=== PATIENT | female | born 1970 | race Caucasian/White ===

== ENCOUNTER → 2020-12-24 | Outpatient (CLI) | payer BC ==
--- NOTE | 2020-12-25 07:29 | US ---
EXAMINATION TYPE: US pelvis complete transvag DATE OF EXAM: 12/24/2020 COMPARISON: NONE CLINICAL HISTORY: N83.9 NONINFLAMMATORY DISORDER OF OVARY. Patient states having uterus and right ova ry removed. TECHNIQUE: Transvaginal (TV) and Transabdominal (TA) . Date of LMP: Partial hysterectomy EXAM MEASUREMENTS: Left Ovary: 2.5 x 1.9 x 1.5 cm 1. Uterus: Surgically absent 2. Endometrium: Surgically absent 3. Right Ovary: Surgically absent 4. Left Ovary: follicles seen 5. Bilateral Adnexa: wnl 6. Posterior cul-de-sac: no free fluid IMPRESSION: The uterus and right ovary are surgically absent. Unremarkable left ovary.
== END | disposition home or self-care (01) ==
LOC: RADUSWWP 14:50
PROVIDERS: ATTEND Family Medicine
DX: N83.9 Noninflammatory disorder of ovary, fallopian tube and broad ligament, unspecified (principal); Z90.710 Acquired absence of both cervix and uterus
CPT/HCPCS: 76830; 76856

== ENCOUNTER → 2022-04-16 | Outpatient (CLI) | payer BC ==
--- NOTE | 2022-04-16 16:00 | US ---
EXAMINATION TYPE: US pelvic complete DATE OF EXAM: 04/16/2022 COMPARISON: CLINICAL HISTORY: pelvic pain R10.2. hx endometriosis. Right ovary and uterus removed. TECHNIQUE: Transabdominal (TA). Transabdominal sonographic images of the pelvis were acquired. Date of LMP: Unknown EXAM MEASUREMENTS: Left Ovary: 2.5 x 1.3 x 1.0 cm 1. Uterus: Surgically absent 2. Endometrium: Surgically absent 3. Right Ovary: Surgically absent 4. Left Ovary: follicles seen 5. Bilateral Adnexa: wnl, no free fluid 6. Posterior cul-de-sac: no free fluid Urinary bladder is sonolucent. The posterior wall is normal. IMPRESSION: 1. Normal postsurgical pelvic ultrasound
== END | disposition home or self-care (01) ==
LOC: RADUSWWP 14:53
PROVIDERS: ATTEND Obstetrics & Gynecology
DX: R10.2 Pelvic and perineal pain (principal); Z90.721 Acquired absence of ovaries, unilateral
CPT/HCPCS: 76856